=== PATIENT | male | born 1960 | race Caucasian/White ===

== ENCOUNTER 2023-07-03 08:52 | Emergency (ER) | payer BC ==
[~2023-07-03] VITALS: Ht 172.7 cm; Wt 104.5 kg
[2023-07-03 08:59] VITALS: BP 166/85; PULSE 68; RESP 18; TEMP 97.6; O2SAT 98
[2023-07-03] MEDS ORDERED: PRED20TA PO (09:00)
[2023-07-03] MEDS ORDERED: ACYC-127 PO (09:01)
== END 2023-07-03 09:15 | disposition home or self-care (01) ==
LOC: ER 08:53
DX: G51.0 Bell's palsy (principal); E78.00 Pure hypercholesterolemia, unspecified; I10 Essential (primary) hypertension
CPT/HCPCS: 99283